=== PATIENT | male | born 1935 | race Caucasian/White ===

== ENCOUNTER 2018-10-19 12:39 | Inpatient (IN) | payer MEDICARE, OTHER ==
[2018-10-19] MEDS ORDERED: NITROGLYCERIN (SL) 0.4 MG TAB SL (13:00)
[2018-10-19 13:03] LABS: ADD MAN DIFF? NO
[2018-10-19 13:06] LABS: BASOPHIL # 0.1 10^3/ul (0.0-0.1); BASOPHILS % 0.4 % (0.0-2.0); HEMATOCRIT 43.3 % (42.0-52.0); LYMPHOCYTES # 3.4 10^3/ul (0.8-2.9); MEAN CORPUSCULAR HEMOGLOBIN 29.7 pg (29.0-33.0); MEAN CORPUSCULAR HGB CONC 32.3 g/dl (32.0-37.0); MEAN CORPUSCULAR VOLUME 91.9 fl (82.0-101.0); MEAN PLATELET VOLUME 10.3 fl (7.4-10.4); MONOCYTE # 0.4 10^3/ul (0.3-0.9); MONOCYTES % 2.7 % (0.0-11.0); NEUTROPHIL # 8.9 10^3/ul (1.6-7.5); NEUTROPHILS % 69.7 % (39.0-77.0); PLATELET COUNT 237 10^3/UL (140-415); RED BLOOD COUNT 4.71 10^6/ul (4.70-6.10); RED CELL DISTRIBUTION WIDTH 13.5 % (11.5-14.5)
[2018-10-19 13:06] LABS: WHITE BLOOD COUNT 12.7 10^3/ul (4.8-10.8)
[2018-10-19] MEDS: NITROGLYCERIN 2% 1 GM OINT PKT TD (13:13)
[2018-10-19] MEDS: ASPIRIN 81 MG TAB PO (13:13)
[2018-10-19] MEDS: ONDANSETRON 4 MG INJ IV ×2 (13:13→17:15)
[2018-10-19 13:24] LABS: ALANINE AMINOTRANSFERASE 25 IU/L (13-69); ALBUMIN 4.6 g/dl (3.3-4.9); ALBUMIN/GLOBULIN RATIO 1.43; ALKALINE PHOSPHATASE 92 IU/L (42-121); ANION GAP 14 (5-13); ASPARTATE AMINO TRANSFERASE 26 IU/L (15-46); BILIRUBIN,INDIRECT 0.7 mg/dl (0-1.1); BILIRUBIN,TOTAL 0.7 mg/dl (0.2-1.3); BLOOD UREA NITROGEN 16 mg/dl (7-20); CALCIUM 9.3 mg/dl (8.4-10.2); CARBON DIOXIDE 26 mmol/L (21-31); CHLORIDE 98 mmol/L (97-110); CREATININE 0.85 mg/dl (0.61-1.24); GLUCOSE 281 mg/dl (70-220); LIPASE 126 U/L (23-300); POTASSIUM 4.7 mmol/L (3.5-5.1); SODIUM 138 mmol/L (135-144); TOTAL PROTEIN 7.8 g/dl (6.1-8.1)
[2018-10-19 13:36] LABS: TROPONIN-I < 0.012 ng/ml (0.000-0.120)
[2018-10-19] MEDS ORDERED: ACETAMINOPHEN 325 MG TAB PO ×2 (14:30→15:30)
[2018-10-19] MEDS ORDERED: ONDANSETRON 4 MG INJ IV ×2 (14:30→15:30)
[2018-10-19] MEDS ORDERED: NACL 0.9% 3 ML SYG IV ×2 (15:30→16:15)
[2018-10-19] MEDS ORDERED: SOD CHLORIDE 0.9% 1,000 ML IV (15:30)
[2018-10-19] MEDS ORDERED: NICOTINE (14 MG/24 HR) PATCH TRANSDERM (16:00)
[2018-10-19] MEDS: ACCU-CHEK XX ×2 (16:54→21:00)
[2018-10-19] MEDS: SOD CHLORIDE 0.9% 1,000 ML IV (17:15)
[2018-10-19] MEDS ORDERED: ACCU-CHEK XX (17:30)
[2018-10-19] MEDS: INSULIN ASPART [NOVOLOG] 3 ML PEN SC ×2 (17:32→21:00)
[2018-10-19] MEDS ORDERED: INSULIN ASPART [NOVOLOG] 3 ML PEN SC (18:00)
[2018-10-19] MEDS ORDERED: NON-FORMULARY/PATIENT OWN MED (Rosuvastatin Calcium* (Crestor*) 20 MG) PO ×2 (21:00)
[2018-10-19] MEDS: ATORVASTATIN 40 MG TAB PO (21:09)
[2018-10-20] MEDS: ACCU-CHEK XX ×5 (02:00→21:00)
[2018-10-20] MEDS ORDERED: ACCU-CHEK XX (02:00)
[2018-10-20] MEDS: PANTOPRAZOLE (EC) 40 MG TAB PO (05:16)
[2018-10-20] MEDS: ACETAMINOPHEN 325 MG TAB PO (05:17)
[2018-10-20] MEDS: ONDANSETRON 4 MG INJ IV (05:20)
[2018-10-20] MEDS ORDERED: PANTOPRAZOLE (EC) 40 MG TAB PO (06:00)
[2018-10-20] MEDS: ASPIRIN (EC) 81 MG TAB PO (08:09)
[2018-10-20] MEDS: NICOTINE (14 MG/24 HR) PATCH TRANSDERM (08:10)
[2018-10-20] MEDS: INSULIN ASPART [NOVOLOG] 3 ML PEN SC ×4 (08:21→21:00)
[2018-10-20] MEDS: ENOXAPARIN 40 MG/0.4 ML SYG SC (08:22)
[2018-10-20] MEDS ORDERED: ASPIRIN (EC) 81 MG TAB PO (09:00)
[2018-10-20] MEDS ORDERED: ENOXAPARIN 40 MG/0.4 ML SYG SC (09:00)
[2018-10-20 11:31] LABS: ADD MAN DIFF? NO
[2018-10-20 11:33] LABS: WHITE BLOOD COUNT 12.6 10^3/ul (4.8-10.8)
[2018-10-20 11:33] LABS: BASOPHIL # 0.1 10^3/ul (0.0-0.1); BASOPHILS % 0.4 % (0.0-2.0); EOSINOPHILS % 0.1 % (0.0-7.0); HEMATOCRIT 40.3 % (42.0-52.0); HEMOGLOBIN 12.9 g/dl (14.0-18.0); LYMPHOCYTES # 3.8 10^3/ul (0.8-2.9); LYMPHOCYTES % 29.9 % (15.0-51.0); MEAN CORPUSCULAR HEMOGLOBIN 29.9 pg (29.0-33.0); MEAN CORPUSCULAR VOLUME 93.5 fl (82.0-101.0); MEAN PLATELET VOLUME 10.3 fl (7.4-10.4); MONOCYTE # 0.6 10^3/ul (0.3-0.9); MONOCYTES % 4.9 % (0.0-11.0); NEUTROPHIL # 8.1 10^3/ul (1.6-7.5); NEUTROPHILS % 64.3 % (39.0-77.0); PLATELET COUNT 237 10^3/UL (140-415); RED BLOOD COUNT 4.31 10^6/ul (4.70-6.10); RED CELL DISTRIBUTION WIDTH 13.5 % (11.5-14.5)
[2018-10-20 12:04] LABS: ANION GAP 9 (5-13); BLOOD UREA NITROGEN 17 mg/dl (7-20); CALCIUM 8.8 mg/dl (8.4-10.2); CARBON DIOXIDE 31 mmol/L (21-31); CHLORIDE 101 mmol/L (97-110); CREATININE 1.16 mg/dl (0.61-1.24); GLUCOSE 196 mg/dl (70-220); MAGNESIUM 1.8 mg/dl (1.7-2.5); PHOSPHORUS 3.3 mg/dl (2.5-4.9); POTASSIUM 4.7 mmol/L (3.5-5.1); SODIUM 141 mmol/L (135-144)
[2018-10-20 16:26] LABS: TROPONIN-I < 0.012 ng/ml (0.000-0.120)
[2018-10-20] MEDS: SOD CHLORIDE 0.9% 1,000 ML IV (17:13)
[2018-10-20 19:41] LABS: TROPONIN-I < 0.012 ng/ml (0.000-0.120)
[2018-10-20] MEDS: ATORVASTATIN 40 MG TAB PO (22:00)
[2018-10-21] MEDS: ACCU-CHEK XX ×5 (01:26→21:55)
[2018-10-21] MEDS: PANTOPRAZOLE (EC) 40 MG TAB PO (05:26)
[2018-10-21] MEDS: SOD CHLORIDE 0.9% 1,000 ML IV ×2 (05:26→17:19)
[2018-10-21] MEDS: ONDANSETRON 4 MG INJ IV (05:33)
[2018-10-21] MEDS: ASPIRIN (EC) 81 MG TAB PO (08:08)
[2018-10-21] MEDS: ENOXAPARIN 40 MG/0.4 ML SYG SC (08:12)
[2018-10-21] MEDS: NICOTINE (14 MG/24 HR) PATCH TRANSDERM (08:13)
[2018-10-21] MEDS: INSULIN ASPART [NOVOLOG] 3 ML PEN SC ×4 (08:20→21:53)
[2018-10-21] MEDS: ATORVASTATIN 40 MG TAB PO (21:37)
[2018-10-22] MEDS: ACCU-CHEK XX ×5 (02:40→20:16)
[2018-10-22] MEDS: PANTOPRAZOLE (EC) 40 MG TAB PO (05:44)
[2018-10-22] MEDS: SOD CHLORIDE 0.9% 1,000 ML IV (07:43)
[2018-10-22] MEDS: INSULIN ASPART [NOVOLOG] 3 ML PEN SC ×4 (07:54→20:35)
[2018-10-22] MEDS: ASPIRIN (EC) 81 MG TAB PO (09:18)
[2018-10-22] MEDS: NICOTINE (14 MG/24 HR) PATCH TRANSDERM (09:19)
[2018-10-22] MEDS: ENOXAPARIN 40 MG/0.4 ML SYG SC (09:23)
[2018-10-22] MEDS: ONDANSETRON 4 MG INJ IV (10:49)
[2018-10-22] MEDS: POTASSIUM CHLORIDE (SR) 20 MEQ TAB PO (16:01)
[2018-10-22] MEDS: MAGNESIUM HYDROXIDE 311 MG TAB PO (16:43)
[2018-10-22 17:29] LABS: ALANINE AMINOTRANSFERASE 66 IU/L (13-69); ALBUMIN 3.4 g/dl (3.3-4.9); ALBUMIN/GLOBULIN RATIO 1.21; ALKALINE PHOSPHATASE 80 IU/L (42-121); ANION GAP 7 (5-13); ASPARTATE AMINO TRANSFERASE 76 IU/L (15-46); BILIRUBIN,INDIRECT 0.9 mg/dl (0-1.1); BILIRUBIN,TOTAL 0.9 mg/dl (0.2-1.3); BLOOD UREA NITROGEN 12 mg/dl (7-20); CARBON DIOXIDE 27 mmol/L (21-31); CHLORIDE 104 mmol/L (97-110); CREATININE 0.93 mg/dl (0.61-1.24); GLUCOSE 211 mg/dl (70-220); POTASSIUM 4.1 mmol/L (3.5-5.1); SODIUM 138 mmol/L (135-144); TOTAL PROTEIN 6.2 g/dl (6.1-8.1)
[2018-10-22] MEDS: MAGNESIUM HYDROXIDE 30ML CUP PO (18:52)
[2018-10-22] MEDS: ATORVASTATIN 40 MG TAB PO (20:11)
[2018-10-23] MEDS: ACCU-CHEK XX ×4 (02:11→17:18)
[2018-10-23] MEDS: PANTOPRAZOLE (EC) 40 MG TAB PO (05:43)
[2018-10-23 05:50] LABS: ADD MAN DIFF? NO
[2018-10-23 05:58] LABS: BASOPHIL # 0.1 10^3/ul (0.0-0.1); BASOPHILS % 0.5 % (0.0-2.0); EOSINOPHILS # 0.1 10^3/ul (0.0-0.5); EOSINOPHILS % 0.8 % (0.0-7.0); HEMOGLOBIN 12.1 g/dl (14.0-18.0); LYMPHOCYTES # 3.2 10^3/ul (0.8-2.9); LYMPHOCYTES % 32.5 % (15.0-51.0); MEAN CORPUSCULAR HEMOGLOBIN 29.5 pg (29.0-33.0); MEAN CORPUSCULAR HGB CONC 31.8 g/dl (32.0-37.0); MEAN CORPUSCULAR VOLUME 92.7 fl (82.0-101.0); MEAN PLATELET VOLUME 11.1 fl (7.4-10.4); MONOCYTE # 0.7 10^3/ul (0.3-0.9); MONOCYTES % 7.3 % (0.0-11.0); NEUTROPHIL # 5.8 10^3/ul (1.6-7.5); NEUTROPHILS % 58.6 % (39.0-77.0); PLATELET COUNT 204 10^3/UL (140-415); RED CELL DISTRIBUTION WIDTH 13.4 % (11.5-14.5)
[2018-10-23 06:23] LABS: ANION GAP 7 (5-13); BLOOD UREA NITROGEN 12 mg/dl (7-20); CALCIUM 8.2 mg/dl (8.4-10.2); CARBON DIOXIDE 27 mmol/L (21-31); CHLORIDE 103 mmol/L (97-110); CREATININE 0.96 mg/dl (0.61-1.24); GLUCOSE 288 mg/dl (70-220); MAGNESIUM 1.9 mg/dl (1.7-2.5); PHOSPHORUS 2.5 mg/dl (2.5-4.9); POTASSIUM 4.5 mmol/L (3.5-5.1); SODIUM 137 mmol/L (135-144)
[2018-10-23] MEDS: INSULIN ASPART [NOVOLOG] 3 ML PEN SC ×3 (07:47→17:23)
[2018-10-23] MEDS: ASPIRIN (EC) 81 MG TAB PO (08:43)
[2018-10-23] MEDS: NICOTINE (14 MG/24 HR) PATCH TRANSDERM (08:44)
[2018-10-23] MEDS: ENOXAPARIN 40 MG/0.4 ML SYG SC (08:51)
[2018-10-23] MEDS ORDERED: CEPASTAT LOZENGE MT (10:30)
== END 2018-10-23 19:32 | disposition home health service (06) | DRG 392 ==
LOC: E/R 12:39 → 6WM 14:14
DX: K52.9 Noninfective gastroenteritis and colitis, unspecified (principal); Z95.1 Presence of aortocoronary bypass graft; E11.65 Type 2 diabetes mellitus with hyperglycemia; I35.0 Nonrheumatic aortic (valve) stenosis; I34.0 Nonrheumatic mitral (valve) insufficiency; Z72.0 Tobacco use; I10 Essential (primary) hypertension; R10.13 Epigastric pain
CPT/HCPCS: 36415; 71045; 80048; 80053; 82962; 83690; 83735; 84100; 84484; 85025; 90686; 93005; 93306; 96374; 97116; 97162; 97530; 99285-25; G0378